=== PATIENT | female | born 1985 | race Caucasian/White ===

== ENCOUNTER → 2017-09-17 09:58 | Outpatient (CLI) | payer OTHER, SELFPAY ==
[2017-09-17 12:24] LABS: Absolute Lymphocyte Count 1.49 X10^3/ul (0.83-4.51); Absolute Neutrophil Count 3.3 X10^3/uL (2.0-7.7); Basophil# 0.02 X10^3/uL; Basophil% 0.4 % (0-1); Eosinophils% 1.9 % (0-5); Hematocrit 40.4 % (37-47); Hemoglobin 13.7 g/dl (12.0-15.0); Lymphocyte # 1.49 X10^3/ul (4.0); Lymphocyte % 28.2 % (19-41); Mean Corp Hgb Conc 33.9 g/gl (32-36); Mean Corpuscular Hgb 30.4 pg (27.0-32.0); Mean Corpuscular Volume 89.6 fL (81-99); Mean Platelet Vol. 10.9 fl (6.2-12.0); Monocyte# 0.34 X10^3/uL; Monocyte% 6.4 % (0-10); Neutrophil # 3.33 X10^3/uL (2.7-7.7); Neutrophil % 62.9 % (47-70); Platelet Count 231 K/mm3 (150-450); RBC Distribution Width CV 12.7 % (11.6-14.6); RBC Distribution Width SD 41.4 fl (35.1-43.9); Red Blood Count 4.51 M/mm3 (4.2-5.4); White Blood Count 5.3 K/mm3 (4.4-11.0)
[2017-09-17 12:43] LABS: ALB/GLOB Ratio 1.1 RATIO (0.9-2.4); AST(SGOT) 14 U/L (15-37); Alanine Aminotransfer ALT/SGPT 24 U/L (13-56); Albumin, Serum 3.8 g/dL (3.2-5.0); Alkaline Phosphatase 61 U/L (45-117); Anion Gap 7 (5-15); BUN 10 mg/dL (7-18); BUN/Creat Ratio 15.2 RATIO (10-20); Calcium,Total 8.6 mg/dL (8.5-10.1); Chloride 106 mmol/L (98-107); Creatinine, Serum 0.66 mg/dL (0.55-1.02); EST Glomerular Filtration Rate 109 mL/min (>60); Est Glom Filt Rate - Afr Amer 132 mL/min (>60); Globulin 3.4 g/dL (2.2-4.2); Glucose 77 mg/dL (74-106); Lipase 183 U/L (73-393); Potassium 4.1 mmol/L (3.5-5.1); Protein, Total 7.2 g/dL (6.4-8.2); Sodium Level 141 mmol/L (136-145)
[2017-09-17 12:46] LABS: POSITIVE COUNT NO; POSITIVE DIFFERENTIAL NO; POSITIVE MORPHOLOGY NO
== END ==
PROVIDERS: Family Provider Family Medicine; PCP Family Medicine; Visit Provider Family Medicine
DX: R10.11 Right upper quadrant pain (principal)
CPT/HCPCS: 36415; 80053; 83690; 85025

== ENCOUNTER → 2017-09-18 09:07 | Outpatient (CLI) | payer OTHER, SELFPAY ==
--- NOTE | 2017-09-18 09:13 | US_ITS ---
STUDY: ABDOMINAL ULTRASOUND - RIGHT UPPER QUADRANT REASON FOR VISIT: Female, 32 years old. Right upper quadrant pain. TECHNIQUE: Ultrasound evaluation of the right upper quadrant was performed with real-time and static valle-scale imaging. TECHNICAL QUALITY: Adequate. COMPARISON: None. FINDINGS: Liver: The liver measures 12.7 cm. There is normal echogenicity of the liver. The bile ducts are within normal limits. There is hepatic color flow. The direction of portal flow is hepatopetal. There is no demonstrated mass lesion. Gallbladder: Normal distended gallbladder. The gallbladder wall measures 2.5 mm. There is a negative sonographic Ferrer's sign. There is no pericholecystic fluid. There are no gallstones. Common Bile Duct (C.B.D.): The common bile duct measures 1.8 mm. Pancreas: Normal size of the head, body and tail of the pancreas. There is normal echogenicity of the pancreas. There is no demonstrated pancreatic mass or cyst. Right Kidney: Normal size of the right kidney. The right kidney measures 10.2 cm x 4.7 cm x 5.0 cm. Normal renal cortex. The right cortex measures 1.6 cm. There is no demonstrated renal mass or cyst. There is no right hydronephrosis. US/Gallbladder IMPRESSION: Normal right upper quadrant ultrasound examination. Electronically Signed: Reginaldo Andrade MD at 10:26 EDT Tel [phone], Service support ,
== END ==
PROVIDERS: Family Provider Family Medicine; PCP Family Medicine; Visit Provider Family Medicine
DX: R10.11 Right upper quadrant pain (principal)
CPT/HCPCS: 76705

== ENCOUNTER → 2017-09-24 11:56 | Outpatient (CLI) | payer OTHER, SELFPAY ==
--- NOTE | 2017-09-24 11:58 | NM_ITS ---
CLINICAL: 32-year-old female with reported history of postprandial right upper quadrant abdominal pain RADIONUCLIDE HEPATOBILIARY SCINTIGRAPHY COMPARISON: Abdominal ultrasound report 09/18/2017 FINDINGS: Following the intravenous administration of 5.0 mCi of 99m Tc Mebrofenin, hepatobiliary images reveal: 1. Relatively prompt and homogeneous radiopharmaceutical concentration is noted by a normal sized liver. No parenchymal defects are identified. 2. Gallbladder activity is identified at 15 minutes post radiopharmaceutical administration. 3. Small intestinal tract is observed at 10 minutes following tracer injection. 4. Washout of the radiopharmaceutical by the hepatic parenchyma appears qualitatively normal. The patient was administered a fatty meal (8 ounces BOOST-30 grams fat). The post fatty meal consumption gallbladder ejection fraction calculated at 17 minutes was noted to be 38.0 % (normal greater than 30%). There appears to be subtle evidence of refilling of the gallbladder following fatty meal consumption. NM/Hepatobilliary Img w/Pharm Int IMPRESSION: 1. A gallbladder ejection fraction calculated to be greater than 30% following the administration of a consumed fatty meal makes the probability of functional hepatobiliary disease (gallbladder dyskinesia) and/or organic hepatobiliary disease (chronic acalculous cholecystitis and/or cystic duct syndrome) to be low. (Inocencio and Martin, J Nucl Med 43: 1603, 2002). 2. The presence of a normal gallbladder ejection fraction with refilling of the gallbladder following CCK administration may represent the presence of Sphincter of Oddi dysfunction. Correlation with Sphincter of Oddi manometry may be of benefit. (Inocencio and Inocencio, J Nucl Med 38:1824, 1997). Electronically Signed: Marlo Luong DO at 22:28 EDT Tel , Service support ,
== END ==
PROVIDERS: Family Provider Family Medicine; PCP Family Medicine; Visit Provider Family Medicine
DX: R10.11 Right upper quadrant pain (principal)
CPT/HCPCS: 78227; A9537

== ENCOUNTER → 2019-05-11 11:35 | Outpatient (CLI) | payer OTHER, SELFPAY ==
[2017-09-26 13:22] VITALS: BMI 24.7
[2019-05-11 14:05] LABS: Absolute Lymphocyte Count 1.54 X10^3/uL (0.83-4.51); Absolute Neutrophil Count 2.6 X10^3/uL (2.0-7.7); Basophil# 0.01 X10^3/uL; Basophil% 0.2 % (0-1); Eosinophil# 0.12 X10^3/uL; Eosinophils% 2.6 % (0-5); Hematocrit 41.4 % (37-47); Hemoglobin 13.9 g/dL (12.0-15.0); Lymphocyte # 1.54 X10^3/ul (4.0); Lymphocyte % 33.7 % (19-41); Mean Corp Hgb Conc 33.6 g/dL (32-36); Mean Corpuscular Hgb 29.9 pg (27.0-32.0); Mean Platelet Vol. 10.8 fl (6.2-12.0); Monocyte# 0.29 X10^3/uL; Monocyte% 6.3 % (0-10); NRBC Flagged by Analyzer 0 % (0-5); Platelet Count 254 K/mm3 (150-450); RBC Distribution Width CV 12.2 % (11.6-14.6); Red Blood Count 4.65 M/mm3 (4.2-5.4); White Blood Count 4.6 K/mm3 (4.4-11.0)
[2019-05-11 14:48] LABS: ALB/GLOB Ratio 1.3 RATIO (0.9-2.4); AST(SGOT) 15 U/L (15-37); Alanine Aminotransfer ALT/SGPT 24 U/L (13-56); Alkaline Phosphatase 69 U/L (45-117); Anion Gap 6 (5-15); BUN 12 mg/dL (7-18); Calcium,Total 8.7 mg/dL (8.5-10.1); Chloride 108 mmol/L (98-107); Creatinine, Serum 0.75 mg/dL (0.55-1.02); EST Glomerular Filtration Rate 93 mL/min (>60); Est Glom Filt Rate - Afr Amer 113 mL/min (>60); Globulin 3.1 g/dL (2.2-4.2); Glucose 69 mg/dL (74-106); Potassium 4.3 mmol/L (3.5-5.1); Protein, Total 7.1 g/dL (6.4-8.2); Sodium Level 141 mmol/L (136-145)
== END ==
PROVIDERS: Family Provider Family Medicine; PCP Family Medicine; Referring Provider Family Medicine; Visit Provider Family Medicine
DX: L29.9 Pruritus, unspecified (principal)
CPT/HCPCS: 36415; 80053; 84443; 85025

== ENCOUNTER → 2019-05-25 12:06 | Outpatient (CLI) | payer OTHER, SELFPAY ==
[2017-09-26 13:22] VITALS: BMI 24.7
[2019-05-29 03:06] LABS: Almond <0.10 kU/L (Class 0); Banana <0.10 kU/L (Class 0); Barley, Whole Grain <0.10 kU/L (Class 0); Beef <0.10 kU/L (Class 0); Carrot <0.10 kU/L (Class 0); Casein <0.10 kU/L (Class 0); Cashew <0.10 kU/L (Class 0); Celery <0.10 kU/L (Class 0); Cheddar Cheese <0.10 kU/L (Class 0); Chicken <0.10 kU/L (Class 0); Chocolate <0.10 kU/L (Class 0); Clam <0.10 kU/L (Class 0); Codfish <0.10 kU/L (Class 0); Corn <0.10 kU/L (Class 0); Crab <0.10 kU/L (Class 0); Egg, White <0.10 kU/L (Class 0); Egg, Whole <0.10 kU/L (Class 0); Egg, Yolk <0.10 kU/L (Class 0); Garlic <0.10 kU/L (Class 0); Gluten <0.10 kU/L (Class 0); Hazelnut/Filbert <0.10 kU/L (Class 0); Lettuce <0.10 kU/L (Class 0); Lobster <0.10 kU/L (Class 0); Milk (Cow) <0.10 kU/L (Class 0); Oat <0.10 kU/L (Class 0); Onion <0.10 kU/L (Class 0); Orange <0.10 kU/L (Class 0); Pea <0.10 kU/L (Class 0); Peach <0.10 kU/L (Class 0); Pecan <0.10 kU/L (Class 0); Pork <0.10 kU/L (Class 0); Potato, White <0.10 kU/L (Class 0); Rice <0.10 kU/L (Class 0); Rye 0.11 kU/L (Class 0/I); Salmon <0.10 kU/L (Class 0); Shrimp <0.10 kU/L (Class 0); Soybean <0.10 kU/L (Class 0); Strawberry <0.10 kU/L (Class 0); Tomato <0.10 kU/L (Class 0); Tuna <0.10 kU/L (Class 0); Walnut, (Food) <0.10 kU/L (Class 0); Wheat <0.10 kU/L (Class 0); Yeast <0.10 kU/L (Class 0)
[2019-05-29 16:33] LABS: Apple <0.10 kU/L (Class 0); Lactalbumin, Alpha <0.10 kU/L (Class 0); Peanut <0.10 kU/L (Class 0); Turkey <0.10 kU/L (Class 0)
== END ==
PROVIDERS: Family Provider Family Medicine; PCP Family Medicine; Visit Provider Family Medicine
DX: L50.9 Urticaria, unspecified (principal)
CPT/HCPCS: 36415; 86003

== ENCOUNTER 2021-08-02 14:00 | Outpatient (CLI) | payer OTHER, SELFPAY | END 2021-08-02 23:59 | disposition home or self-care (01) | LOC: LABSPEC 14:06 | PROVIDERS: PCP Family Medicine; Visit Provider Obstetrics & Gynecology | DX: A60.04 Herpesviral vulvovaginitis (principal) | CPT/HCPCS: 87255 ==

== ENCOUNTER 2021-08-29 10:44 | Outpatient (CLI) | payer OTHER, SELFPAY ==
--- NOTE | 2021-08-29 10:51 | RAD_ITS ---
STUDY: X-RAY - LEFT FOOT CLINICAL: Female, 36 years old. PAIN TECHNIQUE: view(s) of the foot. COMPARISON: None. FINDINGS: Normal talus, calcaneus, and tarsal bones. Normal visualized subtalar, talonavicular, calcaneocuboid, tarsal and tarsometatarsal articulations. Normal metatarsi. Normal metatarsophalangeal joint of the great toe. Normal tibial and fibular sesamoid bones. Normal interphalangeal joint of the great toe. Normal phalanges of the great toe. Normal second through fifth metatarsophalangeal joints. Normal interphalangeal joints and phalanges of the lesser toes. The soft tissue structures are unremarkable. RAD/Foot min 3 Views IMPRESSION: Normal x-ray examination of the foot. Electronically Signed: Luisito Kaplan MD at 6:56 EDT ,
== END 2021-08-29 23:59 | disposition home or self-care (01) ==
LOC: MTRAD 10:46
PROVIDERS: PCP Family Medicine; Referring Provider Podiatrist; Visit Provider Podiatrist
DX: M72.2 Plantar fascial fibromatosis (principal)
CPT/HCPCS: 73630

== ENCOUNTER → 2021-11-07 | Outpatient (CLI) | payer OTHER, SELFPAY ==
[2021-11-07 17:51] LABS: Hematocrit 40.6 % (37-47); Hemoglobin 13.8 g/dL (12.0-15.0)
[2021-11-07 18:02] LABS: Internal QC Validated? YES +Cl - CLEAR BKGD; Pregnancy, Urine Negative Negative
== END | disposition home or self-care (01) ==
LOC: MFPLAB 14:13
PROVIDERS: PCP Family Medicine; Visit Provider Podiatrist
DX: Z01.818 Encounter for other preprocedural examination (principal); M72.2 Plantar fascial fibromatosis
CPT/HCPCS: 36415; 81025; 85014; 85018

== ENCOUNTER → 2022-05-09 | Outpatient (CLI) | payer OTHER, SELFPAY ==
[2022-05-18 13:20] LABS: HPV APTIMA, High Risk Negative (Negative)
== END | disposition home or self-care (01) ==
LOC: LABSPEC 16:56
PROVIDERS: PCP Family Medicine; Visit Provider Nurse Practitioner Women's Health
DX: Z12.4 Encounter for screening for malignant neoplasm of cervix (principal)
CPT/HCPCS: 87624; 88175; G0145

== ENCOUNTER 2022-12-23 17:40 | Emergency (ER) | payer BC, SELFPAY ==
[2022-12-23 17:41] VITALS: BP 133/78; PULSE 83; RESP 18; TEMP 36.3; O2SAT 100; BMI 30.9
--- NOTE | 2022-12-23 19:11 | EDS_ITS ---
HPI History of Present Illness Chief Complaint: Shortness of Breath Narrative Narrative: 37-year-old female who denies significant past medical history complains of dyspnea I and pleuritic chest pain along with pain in her low back that she has had since Saturday, 2 days ago. She relates history that she was flying home from [place], and while she was on the plane she felt that her chest was tight, and that she could not take a deep breath. She denies any leg swelling. She may have become sweaty, but denies any nausea or vomiting. This resolved after around 15 minutes. It may have happened again on the drive home. Once again it only lasted about 15 minutes. Then, yesterday, she had a few episodes where she felt short of breath, central chest tightness, but denies any fevers or chills. No cough, she states that felt like she could not take a deep breath because she would have pain. She denies any family history of early coronary artery disease. She does not take any control pills. PFSH PFS Medical History Abscess of buttock Epigastric pain GERD (gastroesophageal reflux disease) Home Medications Lactobacillus rhamnosus GG 5 billion cell oral powder packet ([employer] Probiotics) PO 05/09/22 [History Last Taken Unknown] multivitamin with minerals 1 tab PO DAILY 05/09/22 [History Last Taken Unknown] omega 4-etb-dhd-fish oil 300 mg-1,000 mg capsule (Fish Oil) 1 cap PO DAILY 05/09/22 [History Last Taken Unknown] Allergy/AdvReac Type Severity Reaction Status Date / Time adhesive Allergy Rash Verified 12/23/22 17:42 Penicillins [PCN] Allergy Hives Verified 12/23/22 17:42 Family History Aunt Cancer skin cancer Surgical History No history of previous surgery Social History Smoking Status: Never smoker alcohol intake: current substance use type: does not use ROS ROS ED ROS Narrative Constitutional: No fever, no chills. HEENT: No sore throat. No neck pain. No loss of vision. No rhinorrhea. Cardiovascular: Midsternal chest tightness, pleuritic chest pain. No palpitations. No pedal edema. Respiratory: No cough, no shortness of breath. Abdominal: No abdominal pain. No nausea. No vomiting. Genitourinary: No dysuria. No hematuria. Musculoskeletal: No myalgias. No arthralgias. Occasional low back pain. Neurologic: No headaches. No dizziness. No lightheadedness. Skin: No rash. No change in color. Psychiatric: No depression. No anxiety. EXAM Physical Exam Narrative Exam Narrative: Afebrile. Vital signs noted. HEENT: Normocephalic. Atraumatic. PERRL, EOMI. Neck soft and supple. No point tenderness or step off. Cardiovascular: Regular rate and rhythm. No murmurs, rubs, or gallops apprecia liliane. Respiratory: No tachypnea. Lungs clear to auscultation bilaterally. Gastrointestinal: Abdomen soft, nontender, with normoactive bowel sounds. No rebound or guarding. Neurological: Awake. Alert. Nonfocal, nonlateralizing. Skin: No rash. Normal color. No pallor. Musculoskeletal: No pedal edema. Full range of motion extremities. Const Vital Signs: 12/23/22 17:41 12/23/22 19:25 Temperature 97.4 F L Temperature Source Temporal Pulse Rate 83 Respiratory Rate 18 Respiratory Effort Normal Blood Pressure 133/78 H Blood Pressure Mean 96 Pulse Ox 100 Oxygen Delivery Method Room Air Room Air MDM MDM MDM Narrative Medical decision making narrative: In the differential diagnosis is pulmonary embolism versus acute coronary syndrome versus asthma/pneumonia. The latter 2 are lower on the differential as she does not have a history of asthma and shows no sign of pneumonia such as cough/productive cough, or fever. Additionally, I do not think that she is having aortic dissection as she has equal pulses, she has no tearing back pain, and her history and physical is not suggestive of aortic dissection. I reviewed her laboratory work, she has normal white count of 6.5, hemoglobin normal at 13.1, hematocrit 39.1, platelet count normal at 257. She has normal sodium of 140 and normal potassium of 3.7, chloride slightly elevated at 108 which I think is nonspecific, normal BUN of 17, normal creatinine of 0.73. EKG was obtained and interpreted by myself independently as normal sinus rhythm at 79 bpm without ectopy or acute ST changes. No STEMI. High-sensitivity troponin is normal at 3. I feel this is greater than a 6-hour troponin. I do not feel she needs serial enzymes to help rule out ACS. D-dimer is normal at 0.37. I have low suspicion for pulmonary embolism. Her pulse ox was rechecked and is 100% on room air. My interpretation of her chest x-ray in 1 view shows no evidence of a pneumothorax or pneumonia. I do not feel that antibiotics are indicated. At this point in time, I am unsure as to the cause of her dyspnea and pleuritic chest pain but I do feel that she can be discharged safely home with follow-up. Return instructions to the emergency department were reviewed. She will be given an albuterol inhaler to use in the event that this is reactive airway disease. I do not feel she requires observation or admission. Disposition is discharged home in stable condition. History & Record Review Discussion w/independent historian: Patient Additional record(s) reviewed:: Prior ED visit Lab Data Attestation: I reviewed the patient's lab results. Labs: Laboratory Results - last 24 hr 12/23/22 19:10 WBC 6.5 RBC 4.32 Hgb 13.1 Hct 39.1 MCV 90.5 MCH 30.3 MCHC 33.5 RDW Std Deviation 41.1 RDW Coeff of Renea 12.4 Plt Count 257 MPV 10.0 Immature Gran % (Auto) 0.300 Neut % (Auto) 57.0 Lymph % (Auto) 35.3 Barron % (Auto) 4.9 Eos % (Auto) 2.2 Baso % (Auto) 0.3 Absolute Neuts (auto) 3.7 Absolute Lymphs (auto) 2.30 Nucleated RBC % 0 D-Dimer Quant (PE/DVT) 0.37 Sodium 140 Potassium 3.7 Chloride 108 H Carbon Dioxide 27.0 Anion Gap 5 BUN 17 Creatinine 0.73 Estim Creat Clear Calc 81.83 Est GFR (MDRD) Af Amer 114 Est GFR (MDRD) Non-Af 95 BUN/Creatinine Ratio 23.4 H Glucose 88 Calcium 8.6 Total Bilirubin 0.30 AST 15 ALT 27 Alkaline Phosphatase 84 Troponin I High Sens 3 Total Protein 7.1 Albumin 3.5 Globulin 3.6 Albumin/Globulin Ratio 1.0 Radiography Diagnostic Testing: Clinical Impression(s) from Imaging Studies Chest X-Ray 12/23/22 19:50 IMPRESSION: Normal x-ray examination of the chest. Electronically Signed: Devyn Hill MD at 20:42 EDT , Discharge Plan Triage Chief Complaint: Shortness of Breath ED Provider: Mike Erazo Dx/Rx/DC Orders Clinical Impression: Pleuritic pain, Dyspnea Instructions: ED Chest Pain, Uncertain Cause, ED Dyspnea Prescriptions: No Action multivitamin with minerals Tablet 1 tab PO DAILY [employer] Probiotics 5 billion cell powder in packet PO omega 9-hnk-heb-fish oil [Fish Oil] 300-1,000 mg capsule 1 cap PO DAILY Primary Care Provider: James Yuen Referrals: Latrell Garrett MD [Non-Staff] - Activity Restrictions/Additional Instructions: Follow-up with your primary care provider in the next few days. Return with new or worsening symptoms. Use the albuterol inhaler 1 to 2 puffs every 6 hours as needed for shortness of breath/chest tightness Disposition Disposition: Home, Self Care
[2022-12-23] MEDS: 0.9% Normal Saline 1,000 ML 1000 ML IV (19:21)
[2022-12-23 19:30] LABS: Absolute Neutrophil Count 3.7 X10^3/uL (2.0-7.7); Basophil# 0.02 X10^3/uL; Basophil% 0.3 % (0-1); Eosinophil# 0.14 X10^3/uL; Eosinophils% 2.2 % (0-5); Hematocrit 39.1 % (37-47); Hemoglobin 13.1 g/dL (12.0-15.0); Lymphocyte % 35.3 % (19-41); Mean Corp Hgb Conc 33.5 g/dL (32-36); Mean Corpuscular Hgb 30.3 pg (27.0-32.0); Mean Corpuscular Volume 90.5 fL (81-99); Monocyte# 0.32 X10^3/uL; Monocyte% 4.9 % (0-10); NRBC Flagged by Analyzer 0 % (0-5); Neutrophil # 3.71 X10^3/uL (2.7-7.7); Platelet Count 257 K/mm3 (150-450); RBC Distribution Width CV 12.4 % (11.6-14.6); RBC Distribution Width SD 41.1 fl (35.1-43.9); Red Blood Count 4.32 M/mm3 (4.2-5.4); White Blood Count 6.5 K/mm3 (4.4-11.0)
[2022-12-23 19:44] LABS: D-Dimer Quantitative (DVT/PE) 0.37 FEU/ug/m (0.27-0.49)
[2022-12-23 19:48] LABS: AST(SGOT) 15 U/L (15-37); Alanine Aminotransfer ALT/SGPT 27 U/L (13-56); Albumin, Serum 3.5 g/dL (3.2-5.0); Alkaline Phosphatase 84 U/L (45-117); Anion Gap 5 (5-15); BUN 17 mg/dL (7-18); BUN/Creat Ratio 23.4 RATIO (10-20); Calcium,Total 8.6 mg/dL (8.5-10.1); Chloride 108 mmol/L (98-107); Creatinine, Serum 0.73 mg/dL (0.55-1.02); EST Glomerular Filtration Rate 95 mL/min (>60); Est Glom Filt Rate - Afr Amer 114 mL/min (>60); Estimated Creatinine Clearance 81.83 ml/min; Globulin 3.6 g/dL (2.2-4.2); Glucose 88 mg/dL (74-106); Potassium 3.7 mmol/L (3.5-5.1); Protein, Total 7.1 g/dL (6.4-8.2); Sodium Level 140 mmol/L (136-145); Troponin-I HS 3 pg/mL (3.0-54.0)
--- NOTE | 2022-12-23 19:50 | RAD_ITS ---
STUDY: X-RAY CHEST REASON FOR EXAM: Female, 37 years old. chest pain TECHNIQUE: Single AP portable view of the chest. COMPARISON: None. FINDINGS: The lungs are clear and expanded. There is no demonstrated pleural abnormality. Normal size heart. Normal mediastinum and cassandra. Normal visualized pulmonary arteries. Normal visualized aortic arch and descending thoracic aorta. Normal visualized thoracic spine. Normal visualized ribs, clavicles, and shoulders. There is no demonstrated abnormality of the visualized soft tissue structures of the upper abdomen. RAD/Chest 1 View (Portable) IMPRESSION: Normal x-ray examination of the chest. Electronically Signed: Devyn Hill MD at 20:42 EDT ,
[2022-12-23] MEDS: Albuterol Sulfate 8 gm Inhaler (60 puffs) 2 PUFF INHALATION (20:52)
[2022-12-23 21:10] VITALS: BP 134/70; PULSE 68; RESP 18; O2SAT 98
== END 2022-12-23 21:40 | disposition home or self-care (01) ==
PROVIDERS: Emergency Provider Emergency Medicine; PCP Family Medicine; Visit Provider Emergency Medicine
DX: R07.81 Pleurodynia (principal); R06.00 Dyspnea, unspecified; K21.9 Gastro-esophageal reflux disease without esophagitis
CPT/HCPCS: 71045; 80053; 84484; 85025; 85379; 93005; 96360; 96361; 99283; J7030; A4216

== ENCOUNTER → 2024-01-02 | Outpatient (CLI) | payer BC, SELFPAY ==
--- NOTE | 2024-01-02 08:49 | US_ITS ---
STUDY: ULTRASOUND BREAST - LEFT REASON FOR EXAM: Female, 38 years old. Occasional left breast pain. TECHNIQUE: Axial and longitudinal images of the LEFT breast were performed with a high resolution ultrasound transducer. # OF IMAGES: 37 COMPARISON: Comparison is made with prior mammogram done earlier today. FINDINGS: LEFT Breast: The 6:00 position and 9:00 of the left breast was performed. There is a 4 mm x 4 mm x 3 mm cyst at the 6:00 position breast at 5 cm from the nipple. There is also evidence of a 4 mm x 4 mm x 2 mm cyst at the 9:00 position of the breast at 1 cm from nipple. US/Breast Limited Unilateral IMPRESSION: 2 small cysts are seen in the inferior medial aspect of the left breast. ASSESSMENT CATEGORY: BIRADS Category 2: Benign. A letter regarding these results will be sent to the patient by the facility within 30 days. Electronically Signed: Reginaldo Andrade MD at 15:08 EDT ,
--- NOTE | 2024-01-02 08:49 | BI_ITS ---
MAMMOGRAPHY - BILATERAL DIAGNOSTIC REASON FOR EXAM: Female, 38 years old. Occasional left breast pain at the 6:00 position. PERTINENT HISTORY: Sister with breast cancer. Grandmother with breast cancer. Aunt with breast cancer. TECHNIQUE: Digital bilateral breast eris (3D mammographic acquisition) in the CC and MLO projections. 2-D mediolateral oblique (MLO) and craniocaudad (CC) views of both breasts were obtained. CAD: Full Field Digital Mammography with Computer Added Detection was performed. COMPARISON: None. Baseline examination. FINDINGS: Breast Composition: The breasts are heterogeneously dense, which may obscure small masses. There is asymmetry of breast tissue but normal breast tissue is seen in the right breast as compared to the left side. There is a 7.1 mm x 10.5 mm nodule at the 6:00 position of the right breast. Correlation with ultrasound is recommended. No other significant abnormalities are identified. BI/DIAG MAMM W/CAD, BILAT IMPRESSION: 7.1 mm x 10.5 mm nodule at the 6:00 position of the right breast as described. Correlation with ultrasound is recommended. With the patient''s history of occasional left breast pain at 6:00 position, correlation with ultrasound recommended. ASSESSMENT CATEGORY: BIRADS Category 0: Incomplete. Need additional imaging evaluation. A letter regarding these results will be sent to the patient by the facility within 30 days. Approximately 10% of breast cancers are not detected by mammography. A normal mammogram should not delay biopsy of a clinically suspicious abnormality. Electronically Signed: Reginaldo Andrade MD at 11:09 EDT ,
--- NOTE | 2024-01-02 09:47 | US_ITS ---
STUDY: ULTRASOUND BREAST - RIGHT REASON FOR EXAM: Female, 38 years old. Abnormal screening mammogram. TECHNIQUE: Axial and longitudinal images of the RIGHT breast were performed with a high resolution ultrasound transducer. # OF IMAGES: 57 COMPARISON: The 6:00 position of the right breast was examined with ultrasound. FINDINGS: RIGHT Breast: There is a 1 cm x 1.1 cm x 1 cm hypoechoic solid nodule at the 6:00 position of the breast at 5 cm from the nipple. Posterior acoustical shadowing is seen. Biopsy recommended. There is also evidence of a 4 mm x 3 mm x 3 mm hypoechoic nodule at the 6:00 position rest at 5 cm from nipple. Biopsy recommended. US/Breast Limited Unilateral IMPRESSION: The mammographic abnormality corresponds to a 1 cm x 1.1 cm x 1 some hypoechoic solid nodule at the 6:00 position breast at 5 cm from nipple. Biopsy recommended. Adjacent to this, there is also evidence of a 4 mm x 3 mm x 3 mm hypoechoic nodule. Biopsy recommended. ASSESSMENT CATEGORY: BIRADS Category 4: Suspicious - Biopsy Should Be Considered. A letter regarding these results will be sent to the patient by the facility within 30 days. Electronically Signed: Reginaldo Andrade MD at 15:10 EDT ,
== END | disposition home or self-care (01) ==
PROVIDERS: PCP Family Medicine; Referring Provider Obstetrics & Gynecology; Visit Provider Obstetrics & Gynecology
DX: N63.10 Unspecified lump in the right breast, unspecified quadrant (principal)
CPT/HCPCS: 76642; 77062; 77066; G0279

== ENCOUNTER → 2024-01-14 | Outpatient (CLI) | payer BC, SELFPAY ==
--- NOTE | 2024-01-14 09:00 | BRBX_PTH ---
PATIENT: CHITRA DIAMOND LOC: [facility] U#:[id number] AGE/SX: 38/F ROOM: RE01/14/[address]: Dr. Reynaldo Person MD : [id number] BED: DIS: 01/14/2024 SPEC #: [id number] RECD: 01/14/24 09:31 STATUS: PALAK MELANIE #: [id number] NICA: 01/14/24 09:[address]: Reynaldo Person DEPT: SURGICAL PATHOLOGY RECD BY: Gladys Andre ENTERED: 01/14/24 10:57 SP TYPE: BREAST BX OTHR DR: Dr. Javon Yuen MD Tissues: A - Right breast, NOS B - Right breast, NOS Procedures: Surgery Specimen Level IV HEADER OPERATION: Right breast biopsy x2 PRE-OP DIAGNOSIS: Abnormal mammogram TISSUE SUBMITTED: A- 1.0cm large nodule right breast biopsy, B- 4.0mm nodules right breast biopsy Ischemic Time: 1 minute Fixation Time: 10.5 hours MICROSCOPIC DIAGNOSIS A. Right breast nodule, core biopsy: Minute portions of fibroadenoma. B. 4.0mm right breast nodule, core biopsy: Benign breast parenchyma with focal duct ectasia. No evidence of malignancy. / 01/15/2024 MICROSCOPIC DESCRIPTION Slides are reviewed. GROSS DESCRIPTION A. Received in fixative is one container labeled with the patient's name and designated 1.0cm larger nodule right breast biopsy. The specimen consists of multiple elongated fragments of luo-yellow fibroadipose tissue that in aggregate measure 2.0 x 0.5 x 0.1 cm. The specimen is totally submitted in one cassette. B. Received in fixative is one container labeled with the patient's name and designated 4.0mm nodule right breast biopsy adjacent to larger nodule. The specimen consists of multiple elongated fragments of luo-yellow fibroadipose tissue that in aggregate measure 1.0 x 0.3 x 0.1cm. The specimen is totally submitted in one cassette. / 01/14/2024 TC:5 CPT:38310w8
== END | disposition home or self-care (01) ==
LOC: LABSPEC 09:45
PROVIDERS: PCP Family Medicine; Referring Provider Surgery; Visit Provider Surgery
DX: N60.41 Mammary duct ectasia of right breast (principal)
CPT/HCPCS: 88305

== ENCOUNTER → 2024-07-02 | Outpatient (CLI) | payer BC, SELFPAY ==
--- NOTE | 2024-07-02 09:07 | US_ITS ---
STUDY: ULTRASOUND BREAST - RIGHT REASON FOR EXAM: Female, 38 years old. Follow-up right breast nodules. TECHNIQUE: Axial and longitudinal images of the RIGHT breast were performed with a high resolution ultrasound transducer. # OF IMAGES: 44 COMPARISON: Comparison is made with prior sonogram of the right breast dated January 02, 2024 and mammogram dated January 02, 2024. FINDINGS: RIGHT Breast: The inferior half of the right breast was examined with ultrasound. There is a 1.1 cm x 1.1 cm x 1.2 cm hypoechoic nodule with vascularity at the 6:00 position of the breast and 5 cm from the nipple. Adjacent to this, there is also evidence of a 4 mm x 4 mm 3 mm hypoechoic nodule. US/Breast Limited Unilateral IMPRESSION: Stable examination. ASSESSMENT CATEGORY: BIRADS Category 2: Benign. A letter regarding these results will be sent to the patient by the facility within 30 days. Electronically Signed: Reginaldo Andrade MD at 13:29 EST ,
[2024-07-02 09:52] LABS: Absolute Lymphocyte Count 1.99 X10^3/uL (0.83-4.51); Absolute Neutrophil Count 3.1 X10^3/uL (2.0-7.7); Basophil# 0.02 X10^3/uL; Basophil% 0.4 % (0-1); Eosinophil# 0.07 X10^3/uL; Eosinophils% 1.3 % (0-5); Hematocrit 40.3 % (37-47); Lymphocyte # 1.99 X10^3/ul (0.83-4.51); Lymphocyte % 35.5 % (19-41); Mean Corp Hgb Conc 34.7 g/dL (32-36); Mean Corpuscular Volume 86.5 fL (81-99); Mean Platelet Vol. 10.3 fl (6.2-12.0); Monocyte# 0.38 X10^3/uL; Monocyte% 6.8 % (0-10); NRBC Flagged by Analyzer 0 % (0-5); Neutrophil # 3.13 X10^3/uL (2.7-7.7); Neutrophil % 55.8 % (47-70); Platelet Count 269 K/mm3 (150-450); RBC Distribution Width CV 12.4 % (11.6-14.6); RBC Distribution Width SD 39.2 fl (35.1-43.9); Red Blood Count 4.66 M/mm3 (4.2-5.4); White Blood Count 5.6 K/mm3 (4.4-11.0)
[2024-07-02 10:09] LABS: Hemoglobin A1c 5.4 % (3.8-5.6)
[2024-07-02 10:15] LABS: AST(SGOT) 12 U/L (15-37); Alanine Aminotransfer ALT/SGPT 25 U/L (13-56); Albumin, Serum 3.5 g/dL (3.2-5.0); Alkaline Phosphatase 64 U/L (45-117); Anion Gap 5 (5-15); BUN 9 mg/dL (7-18); BUN/Creat Ratio 11.6 RATIO (10-20); Calcium,Total 8.8 mg/dL (8.5-10.1); Chloride 107 mmol/L (98-107); Cholesterol 215 mg/dL (200); Creatinine, Serum 0.78 mg/dL (0.55-1.02); EST Glomerular Filtration Rate 87 mL/min (>60); Est Glom Filt Rate - Afr Amer 105 mL/min (>60); Globulin 3.6 g/dL (2.2-4.2); Glucose 82 mg/dL (74-106); High Density Lipoprotein 36 mg/dL; Potassium 3.8 mmol/L (3.5-5.1); Protein, Total 7.1 g/dL (6.4-8.2); Sodium Level 138 mmol/L (136-145); Triglycerides 183 mg/dL; Very Low Density Lipoprotein 37 mg/dL (5-40)
[2024-07-04 17:06] LABS: Vitamin D 1,25-Dihydroxy 36.8 pg/mL (24.8-81.5)
== END | disposition home or self-care (01) ==
PROVIDERS: Obstetrics & Gynecology; PCP Family Medicine; Referring Provider Surgery; Visit Provider Surgery
DX: Z00.00 Encounter for general adult medical examination without abnormal findings (principal); Z13.1 Encounter for screening for diabetes mellitus; Z13.21 Encounter for screening for nutritional disorder; Z13.220 Encounter for screening for lipoid disorders; Z13.29 Encounter for screening for other suspected endocrine disorder; N63.10 Unspecified lump in the right breast, unspecified quadrant
CPT/HCPCS: 36415; 76642; 80053; 80061; 82652; 83036; 84443; 85025